=== PATIENT | female | born 1995 | race Caucasian/White ===

== ENCOUNTER 2016-07-01 02:20 | Emergency (ER) | payer OTHER, MEDICAID ==
[2016-07-01] VITALS (8 sets, daily range): BP systolic 84–107; BP diastolic 50–55; PULSE 48–99; RESP 16–21; TEMP 97.8–98.5; O2SAT 68–100
[~2016-07-01 02:20] MED LIST: BUSP10 PO; MONOTAB PO
[2016-07-01 03:14] LABS: AMPHETAMINE, URINE POS (NEG); BARBITURATES, URINE NEG (NEG); COCAINE, URINE POS (NEG)
[2016-07-01 03:17] LABS: AUTOMATED NEUTROPHIL # 4.2 TH/MM3 (1.8-7.7); BASOPHIL % 0.7 % (0.0-2.0); EOSINOPHIL % 0.7 % (0.0-4.0); HEMO FLAGS DIFF FINAL; LYMPH % 27.3 % (9.0-44.0); LYMPHOCYTE # 1.8 TH/MM3 (1.0-4.8); MEAN CELL VOLUME 75.3 FL (80.0-100.0); MEAN CORPUSCULAR HEMOGLOBIN 25.5 PG (27.0-34.0); MEAN CORPUSCULAR HGB CONC 33.9 % (32.0-36.0); MONO % 6.8 % (0.0-8.0); NEUT % 64.5 % (16.0-70.0); PLATELET COUNT 217 TH/MM3 (150-450); RED BLOOD COUNT 4.91 MIL/MM3 (4.00-5.30); WHITE BLOOD COUNT 6.5 TH/MM3 (4.0-11.0)
[2016-07-01 03:20] LABS: ALT (GPT) 20 U/L (9-42); ANION GAP 10 MEQ/L (5-15); AST (GOT) 14 U/L (16-38); BICARBONATE 24.9 MEQ/L (21.0-32.0); BLOOD UREA NITROGEN 11 MG/DL (7-18); CHLORIDE 101 MEQ/L (98-107); GLOMERULAR FILTRATION RATE 90 ML/MIN (>89); POTASSIUM 3.8 MEQ/L (3.5-5.1); SODIUM (NA) 136 MEQ/L (136-145)
[2016-07-01 03:22] LABS: ALKALINE PHOSPHATASE 44 U/L (45-117); TOTAL BILIRUBIN ADULT 0.9 MG/DL (0.2-1.0)
--- NOTE | 2016-07-01 04:21 | PD ---
HPI Chief Complaint: Psychiatric Symptoms Time Seen by Provider: 02:47 Travel History International Travel<30 days: No Contact w/Intl Traveler<30days: No Traveled to known affect area: No History of Present Illness HPI 20-year-old female with history of anxiety, states that she takes Xanax on a regular basis, presents to the ER today brought in as a Montez act. Patient states that she has been fighting with her boyfriend and has been having anxiety attacks, and took 4 mg of Xanax today at 1 AM. She denies trying to harm herself, states that she has also had some alcohol. She states that she has taken Xanax at similar doses in the past. She denies any other ingestions. She denies any vomiting, chest pains, fevers, or any other symptoms. Modifying Factors: None Associated Signs & Symptoms: Anxiety, took 4 mg of Xanax, Montez act Risk Factors: History of anxiety attacks PFSH Past Medical History Anxiety: Yes Depression: Yes Diminished Hearing: No ?: Not LMP: "RIGHT NOW" : 0 Para: 0 Past Surgical History Other Surgery: Yes (wisdom teeth extraction) Social History Alcohol Use: Yes ("FEW BEERS EVERYDAY") Tobacco Use: Yes (5 CIGARETTES DAILY) Substance Use: Yes (XANAX DAILY) Allergies-Medications (Allergen,Severity, Reaction): Coded Allergies: No Known Allergies (Unverified , 07/01/16) Reported Meds & Prescriptions Reported Meds & Active Scripts Active No Active Prescriptions or Reported Medications Review of Systems Except as stated in HPI: all other systems reviewed are Neg Physical Exam Narrative GENERAL: Well-nourished, well-developed young white female patient in no acute distress. Awake and oriented 3. SKIN: Warm and dry. HEAD: Normocephalic. EYES: No scleral icterus. No injection or drainage. NECK: Supple, trachea midline. CARDIOVASCULAR: Regular rate and rhythm without murmurs, gallops, or rubs. RESPIRATORY: Breath sounds equal bilaterally. No accessory muscle use. GASTROINTESTINAL: Abdomen soft, non-tender, nondistended. MUSCULOSKELETAL: No cyanosis, or edema. BACK: Nontender without obvious deformity. No CVA tenderness. Data Data Last Documented VS Vital Signs Date Time Temp Pulse Resp B/P Pulse Ox O2 Delivery O2 Flow Rate FiO2 07/01/16 03:13 65 16 98/54 95 Room Air 07/01/16 02:37 97.8 Orders Complete Blood Count With Diff (07/01/16 02:26) Comprehensive Metabolic Panel (07/01/16 02:26) Ed Urine Pregnancytest Poc (07/01/16 02:26) Psych Screen (07/01/16 02:26) Drug Screen, Random Urine (07/01/16 02:26) Alcohol (Ethanol) (07/01/16 02:26) Labs Laboratory Tests Test 07/01/16 07/01/16 02:40 02:50 Urine Opiates Screen NEG Urine Barbiturates Screen NEG Urine Amphetamines Screen POS Urine Benzodiazepines Screen POS Urine Cocaine Screen POS Urine Cannabinoids Screen POS White Blood Count 6.5 TH/MM3 Red Blood Count 4.91 MIL/MM3 Hemoglobin 12.5 GM/DL Hematocrit 37.0 % Mean Corpuscular Volume 75.3 FL Mean Corpuscular Hemoglobin 25.5 PG Mean Corpuscular Hemoglobin 33.9 % Concent Red Cell Distribution Width 14.0 % Platelet Count 217 TH/MM3 Mean Platelet Volume 8.9 FL Neutrophils (%) (Auto) 64.5 % Lymphocytes (%) (Auto) 27.3 % Monocytes (%) (Auto) 6.8 % Eosinophils (%) (Auto) 0.7 % Basophils (%) (Auto) 0.7 % Neutrophils # (Auto) 4.2 TH/MM3 Lymphocytes # (Auto) 1.8 TH/MM3 Monocytes # (Auto) 0.4 TH/MM3 Eosinophils # (Auto) 0.0 TH/MM3 Basophils # (Auto) 0.0 TH/MM3 CBC Comment DIFF FINAL Differential Comment Sodium Level 136 MEQ/L Potassium Level 3.8 MEQ/L Chloride Level 101 MEQ/L Carbon Dioxide Level 24.9 MEQ/L Anion Gap 10 MEQ/L Blood Urea Nitrogen 11 MG/DL Creatinine 0.82 MG/DL Estimat Glomerular Filtration 90 ML/MIN Rate Random Glucose 74 MG/DL Calcium Level 8.7 MG/DL Total Bilirubin 0.9 MG/DL Aspartate Amino Transf 14 U/L (AST/SGOT) Alanine Aminotransferase 20 U/L (ALT/SGPT) Alkaline Phosphatase 44 U/L Total Protein 7.6 GM/DL Albumin 4.2 GM/DL Ethyl Alcohol Level 4 MG/DL MDM Medical Decision Making Medical Screen Exam Complete: Yes Emergency Medical Condition: Yes Medical Record Reviewed: Yes Interpretation(s) Laboratory Tests Test 07/01/16 07/01/16 02:40 02:50 Urine Amphetamines Screen POS (NEG) Urine Benzodiazepines Screen POS (NEG) Urine Cocaine Screen POS (NEG) Urine Cannabinoids Screen POS (NEG) Mean Corpuscular Volume 75.3 FL (80.0-100.0) Mean Corpuscular Hemoglobin 25.5 PG (27.0-34.0) Aspartate Amino Transf 14 U/L (16-38) (AST/SGOT) Alkaline Phosphatase 44 U/L (45-117) Differential Diagnosis Anxiety, took multiple Xanax tablets, Montez actrule out coingestions Narrative Course Lab work shows signs of polysubstance use. Patient is observed in the ER for several hours and has had no decompensation. Patient states that she takes multiple center tablets in the past and this is not unusual for her. At this point, patient has been Montez acted and my plan would be to medically clear her for further psychiatric evaluation. Sitter on noticed. Diagnosis Primary Impression: Anxiety Additional Impression: Substance induced mood disorder Scripts No Active Prescriptions or Reported Meds Disposition: 65 DISC TO PSYCH CARE FACILITY Condition: Stable Gin Chung MD Jul 01, 2016 04:21
== END 2016-07-01 14:59 | disposition home or self-care (01) ==
LOC: NEPE 02:20 → NEPA 14:59
DX: F41.9 Anxiety disorder, unspecified (principal); F15.94 Other stimulant use, unspecified with stimulant-induced mood disorder; F17.210 Nicotine dependence, cigarettes, uncomplicated
CPT/HCPCS: 80053; 80307; 80320; 84703; 85025

== ENCOUNTER 2016-07-06 19:13 | Emergency (ER) | payer MEDICAID, OTHER ==
[~2016-07-06] VITALS: Ht 154.9 cm; Wt 41.0 kg
[2016-07-06] MEDS ORDERED: SODIUM CHLOR 0.9% 1000 ML INJ 1,000 ML IV SCH (19:27)
[2016-07-06] MEDS ORDERED: SODIUM CHLORIDE 0.9% FLUSH 5 ML FLUSH IVF PRN (19:30)
[2016-07-06 19:31] VITALS: BP 119/74; PULSE 84; RESP 16; TEMP 97.7; O2SAT 95
[2016-07-06] MEDS ORDERED: XANA2TAB2 PO (19:31)
--- NOTE | 2016-07-06 19:31 | PD ---
HPI Chief Complaint: seizure Time Seen by Provider: 19:23 Travel History International Travel<30 days: No Contact w/Intl Traveler<30days: No Traveled to known affect area: No History of Present Illness HPI 20-year-old female brought in by ambulance from home after reportedly having a seizure that was witnessed by her boyfriend. Patient does not recall the entire event. She has no history of seizures. She does report using Xanax that is reportedly made on the streets, and over the last 2 weeks she has been taking a lot less than usual in an attempt to wean herself off of this medication. She denies using any other illicit drugs. No alcohol abuse. She denies any physical complaints. There was note tongue biting or urinary incontinence. No fevers, chills, cough, or recent illness. No headache, neck pain, chest pain or dyspnea. No IVDU. According to the patient's boyfriend who witnessed the event, the patient became unresponsive, fell backwards, and began to have upper body convulsions. This lasted for about a minute to minute and a half. PFSH Past Medical History Anxiety: Yes Depression: Yes Diminished Hearing: No : 0 Para: 0 Past Surgical History Other Surgery: Yes (wisdom teeth extraction) Social History Alcohol Use: Yes (4-5 beers per day) Tobacco Use: Yes Substance Use: Yes (Marijuana per day) Allergies-Medications (Allergen,Severity, Reaction): Coded Allergies: No Known Allergies (Unverified , 07/06/16) Reported Meds & Prescriptions Reported Meds & Active Scripts Active Bactrim DS (Sulfamethoxazole-Trimethoprim) 800-160 Mg Tab 1 Tab PO BID Reported Xanax (Alprazolam) 2 Mg Tab 2 Mg PO BID PRN Review of Systems Except as stated in HPI: all other systems reviewed are Neg Physical Exam Narrative GENERAL: Well-developed, well-nourished, awake, alert, no acute distress. SKIN: Warm and dry. No rash. No lacerations, abrasions, or ecchymosis. HEAD: Atraumatic. Normocephalic. EYES: Pupils equal and round. No scleral icterus. No injection or drainage. ENT: No nasal bleeding or discharge. Mucous membranes pink and moist. NECK: Trachea midline. No JVD. No nuchal rigidity. CARDIOVASCULAR: Regular rate and rhythm. RESPIRATORY: No accessory muscle use. Clear to auscultation. Breath sounds equal bilaterally. GASTROINTESTINAL: Abdomen soft, non-tender, nondistended. MUSCULOSKELETAL: No obvious deformities. No clubbing. No cyanosis. No edema. NEUROLOGICAL: Awake and alert. No obvious cranial nerve deficits. Motor grossly within normal limits. Normal speech. PSYCHIATRIC: Appropriate mood and affect; insight and judgment normal. Data Data Last Documented VS Vital Signs Date Time Temp Pulse Resp B/P Pulse Ox O2 Delivery O2 Flow Rate FiO2 07/06/16 21:00 80 16 107/57 99 Room Air 07/06/16 19:31 97.7 Orders Beta Hcg (Quant/Titer) (07/06/16 19:27) Complete Blood Count With Diff (07/06/16 19:27) Comprehensive Metabolic Panel (07/06/16 19:27) Prothrombin Time / Inr (Pt) (07/06/16 19:27) Act Partial Throm Time (Ptt) (07/06/16 19:27) Urinalysis - C+S If Indicated (07/06/16 19:27) Iv Access Insert/Monitor (07/06/16 19:27) Ecg Monitoring (07/06/16 19:27) Oximetry (07/06/16 19:27) Sodium Chlor 0.9% 1000 Ml Inj (Ns 1000 M (07/06/16 19:27) Sodium Chloride 0.9% Flush (Ns Flush) (07/06/16 19:30) Electrocardiogram (07/06/16 19:27) Drug Screen, Random Urine (07/06/16 19:27) Ct Brain W/O Iv Contrast(Rout) (07/06/16 ) Urine Culture (07/06/16 19:40) Ceftriaxone Inj (Rocephin Inj) (07/06/16 22:00) Labs Laboratory Tests Test 07/06/16 07/06/16 07/06/16 19:40 19:49 21:08 Urine Color YELLOW Urine Turbidity SLIGHT Urine pH 6.0 Urine Specific [place] 1.025 Urine Protein 30 mg/dL Urine Glucose (UA) NEG mg/dL Urine Ketones 40 mg/dL Urine Occult Blood MOD Urine Nitrite NEG Urine Bilirubin NEG Urine Leukocyte Esterase NEG Urine WBC 15-19 /hpf Urine Squamous Epithelial 0-5 /hpf Cells Urine Amorphous Sediment SMALL Urine Bacteria FEW /hpf Urine Mucus MANY /lpf Microscopic Urinalysis Comment CULTURE INDICATED Urine Opiates Screen NEG Urine Barbiturates Screen NEG Urine Amphetamines Screen NEG Urine Benzodiazepines Screen POS Urine Cocaine Screen NEG Urine Cannabinoids Screen POS White Blood Count 8.2 TH/MM3 Red Blood Count 5.01 MIL/MM3 Hemoglobin 12.6 GM/DL Hematocrit 38.1 % Mean Corpuscular Volume 76.1 FL Mean Corpuscular Hemoglobin 25.1 PG Mean Corpuscular Hemoglobin 33.0 % Concent Red Cell Distribution Width 12.7 % Platelet Count 232 TH/MM3 Mean Platelet Volume 9.5 FL Neutrophils (%) (Auto) 82.2 % Lymphocytes (%) (Auto) 12.1 % Monocytes (%) (Auto) 5.0 % Eosinophils (%) (Auto) 0.1 % Basophils (%) (Auto) 0.6 % Neutrophils # (Auto) 6.8 TH/MM3 Lymphocytes # (Auto) 1.0 TH/MM3 Monocytes # (Auto) 0.4 TH/MM3 Eosinophils # (Auto) 0.0 TH/MM3 Basophils # (Auto) 0.0 TH/MM3 CBC Comment DIFF FINAL Differential Comment Prothrombin Time 13.1 SEC Prothromb Time International 1.2 RATIO Ratio Activated Partial 24.7 SEC Thromboplast Time Sodium Level 142 MEQ/L Potassium Level 3.7 MEQ/L Chloride Level 106 MEQ/L Carbon Dioxide Level 23.9 MEQ/L Anion Gap 12 MEQ/L Blood Urea Nitrogen 7 MG/DL Creatinine 0.58 MG/DL Estimat Glomerular Filtration 134 ML/MIN Rate Random Glucose 81 MG/DL Calcium Level 7.9 MG/DL Total Bilirubin 0.5 MG/DL Aspartate Amino Transf 13 U/L (AST/SGOT) Alanine Aminotransferase 22 U/L (ALT/SGPT) Alkaline Phosphatase 40 U/L Total Protein 6.7 GM/DL Albumin 3.6 GM/DL Human Chorionic Gonadotropin, LESS THAN 1 Quant MIU/ML MDM Medical Decision Making Medical Screen Exam Complete: Yes Emergency Medical Condition: Yes Medical Record Reviewed: Yes Interpretation(s) EKG: Sinus, rate 75, PVCs, normal intervals, no acute ischemic abnormality. Differential Diagnosis Benzodiazepine withdrawal seizure, new onset seizure, electrolyte abnormality, intracranial abnormality Narrative Course Vital signs show heart rate 84, blood pressure 119/74, pulse ox 100% on room air , oral temp of 97.7F. CBC shows to be BC 8.2, hemoglobin 12.6, hematocrit 38.1, platelets 232, neutrophils 82%. CMP is remarkable for calcium 7.9, otherwise unremarkable. Beta hCG is negative. UA shows 40 ketones, moderate occult blood, 15-19 wbc's, few bacteria, many, culture indicated. The patient was given a dose of Rocephin for this. Urine drug screen is positive for cannabinoids and benzodiazepines. CT head: CONCLUSION: Normal examination. Patient was observed in the emergency department and is resting comfortably. There is no further seizure-like activity. There was no tongue biting or urinary incontinence with this reported episode of possible seizure that the patient had at home. The patient could have had a benzodiazepine withdrawal seizure. At this point I do not believe the patient requires admission for further workup. She is overall well-appearing. She will continue to wean herself off of Xanax. I believe she is stable for discharge home with her boyfriend with outpatient follow-up with a primary care physician this week. I will also provide her the name of the neurologist stonecutter assistant with whom to follow- up with. She will be treated for UTI with Bactrim. She was informed on when to return to the emergency department patient verbalizes understanding and agreement with plan. Diagnosis Primary Impression: Withdrawal from benzodiazepine Qualified Code: F13.239 - Withdrawal from benzodiazepine, with unspecified complication Additional Impression: UTI (urinary tract infection) Qualified Code: N39.0 - Urinary tract infection with hematuria, site unspecified Referrals: Liv Moreno MD 3 days Neurologist Primary Care Physician 3 days Additional Instructions: Follow-up with a primary care physician this week. Follow-up with neurologist Dr. Moreno or a neurologist of your choice this week. Do not drive until follow-up with neurologist. Return to the emergency department for worsening symptoms or any other concerns as discussed. Scripts Sulfamethoxazole-Trimethoprim (Bactrim DS)800-160 Mg Tab1 Tab PO BID #6 TAB Ref 0 Prov:Charli Vasquez MD 07/06/16 Charli Vasquez MD Jul 06, 2016 19:31
[2016-07-06 19:45] VITALS: O2SAT 100
[2016-07-06 20:07] LABS: AUTOMATED NEUTROPHIL # 6.8 TH/MM3 (1.8-7.7); BASOPHIL % 0.6 % (0.0-2.0); EOSINOPHIL % 0.1 % (0.0-4.0); HEMATOCRIT 38.1 % (35.0-46.0); HEMO FLAGS DIFF FINAL; LYMPH % 12.1 % (9.0-44.0); MEAN CELL VOLUME 76.1 FL (80.0-100.0); MEAN CORPUSCULAR HEMOGLOBIN 25.1 PG (27.0-34.0); NEUT % 82.2 % (16.0-70.0); PLATELET COUNT 232 TH/MM3 (150-450); RED BLOOD COUNT 5.01 MIL/MM3 (4.00-5.30); RED CELL DISTRIBUTION WIDTH 12.7 % (11.6-17.2); WHITE BLOOD COUNT 8.2 TH/MM3 (4.0-11.0)
[2016-07-06 20:09] LABS: GLUCOSE,URINE NEG (NEG); KETONE, URINE 40 mg/dL (NEG); NITRITE,URINE NEG (NEG)
[2016-07-06 20:10] LABS: BLOOD, URINE MOD (NEG)
[2016-07-06 20:18] LABS: MUCUS URINE MANY /lpf (OCC); URINE COLOR YELLOW (YELLW/STRAW)
[2016-07-06 20:19] LABS: BACTERIA, URINE FEW /hpf; SQUAMOUS EPITHELIAL CELL URINE 0-5 /hpf (0-5); WBC, URINE 15-19 /hpf (0-5)
[2016-07-06 20:19] LABS: APTT (PATIENT) 24.7 SEC (24.3-30.1); INTERNATIONAL NORMALIZED RATIO 1.2 RATIO; PROTHROMBIN TIME - PATIENT 13.1 SEC (9.8-11.6)
[2016-07-06 20:20] LABS: COMMENT (UR) CULTURE INDICATED; CULTURE IF INDICATED CULTURE INDICATED
[2016-07-06 20:27] LABS: AMPHETAMINE, URINE NEG (NEG); BARBITURATES, URINE NEG (NEG); COCAINE, URINE NEG (NEG)
[2016-07-06 20:30] VITALS: BP 112/65; PULSE 77; RESP 18; O2SAT 97
[2016-07-06 21:00] VITALS: BP 107/57; PULSE 80; RESP 16; O2SAT 99
[2016-07-06 21:55] LABS: BLOOD UREA NITROGEN 7 MG/DL (7-18); GLOMERULAR FILTRATION RATE 134 ML/MIN (>89)
[2016-07-06 21:56] LABS: ALKALINE PHOSPHATASE 40 U/L (45-117); ALT (GPT) 22 U/L (9-42); AST (GOT) 13 U/L (16-38); CHLORIDE 106 MEQ/L (98-107); POTASSIUM 3.7 MEQ/L (3.5-5.1); SODIUM (NA) 142 MEQ/L (136-145); TOTAL BILIRUBIN ADULT 0.5 MG/DL (0.2-1.0)
[2016-07-06 21:57] LABS: ANION GAP 12 MEQ/L (5-15); BICARBONATE 23.9 MEQ/L (21.0-32.0)
[2016-07-06 21:58] LABS: BETA HCG QUANT LESS THAN 1 MIU/ML (0-5)
[2016-07-06 22:00] VITALS: BP 110/56; PULSE 82; RESP 18; O2SAT 99
[2016-07-06] MEDS ORDERED: cefTRIAXone INJ 1,000 MG in SODIUM CHLORIDE 0.9% INJ 100 ML IV ONE (22:00)
[2016-07-06] MEDS ORDERED: BACT800T5 PO (22:27)
--- NOTE | 2016-07-06 22:35 | RADHPO ---
EXAM DATE/TIME: 07/06/2016 22:08 [facility] COMPARISON: CT BRAIN W/O CONTRAST, July 10, 2015, 21:25. INDICATIONS : Seizure. Altered mental status. RADIATION DOSE: 56.33 CTDIvol (mGy) MEDICAL HISTORY : None SURGICAL HISTORY : None. ENCOUNTER: Initial ACUITY: 1 day PAIN SCALE: 0/10 LOCATION: cranial TECHNIQUE: Multiple contiguous axial images were obtained of the head. Using automated exposure control and adj ustment of the mA and/or kV according to patient size, radiation dose was kept as low as reasonably a chievable to obtain optimal diagnostic quality images. FINDINGS: CEREBRUM: The ventricles are normal for age. No evidence of midline shift, mass lesion, hemorrhage or acute in farction. No extra-axial fluid collections are seen. POSTERIOR FOSSA: The cerebellum and brainstem are intact. The 4th ventricle is midline. The cerebellopontine angle i s unremarkable. EXTRACRANIAL: The visualized portion of the orbits is intact. SKULL: The calvaria is intact. No evidence of skull fracture. CONCLUSION: Normal examination. El Werner MD on July 06, 2016 at 22:33 Board Certified Radiologist. This report was verified electronically.
[2016-07-06 23:19] VITALS: BP 107/70; TEMP 97.5
--- NOTE | 2016-07-07 12:34 | EKG ---
Date Performed: 07/06/2016 Time Performed: 19:43:16 PTAGE: 20 years EKG: Sinus rhythm with PAC(s). Borderline ECG NO PREVIOUS TRACING DOCTOR: Lars Rodriguez Interpretating Date/Time 07/07/2016 12:30:27
== END 2016-07-06 23:20 | disposition home or self-care (01) ==
LOC: PHED 19:13
DX: F13.239 Sedative, hypnotic or anxiolytic dependence with withdrawal, unspecified (principal); N39.0 Urinary tract infection, site not specified; B96.89 Other specified bacterial agents as the cause of diseases classified elsewhere; R31.9 Hematuria, unspecified
CPT/HCPCS: 70450; 80053; 80307; 81001; 84702; 85025; 85610; 85730; 87086; 93005; 96361; 96365; 99285; J0696; J7030